=== PATIENT | male | born 1965 | race Caucasian/White ===

== ENCOUNTER 2022-02-02 08:31 | Day surgery (SDC) | payer OTHER, MEDICARE ==
[~2022-02-02 08:31] MED LIST: SODIUM CHLORIDE 0.9% 1000 ML 1,000 ML IV SCH
--- NOTE | 2022-02-02 10:17 | Anesthesia Consultation ---
Anesthesia Consult and Med Hx Date of service: 02/02/22 - Airway Anesthetic Teeth Evaluation: Good ROM Head & Neck: Adequate Mental/Hyoid Distance: Adequate Mallampati Class: Class I Intubation Access Assessment: Probably Good - Pulmonary Exam CTA: Yes - Cardiac Exam Cardiac Exam: RRR - Pre-Operative Health Status ASA Pre-Surgery Classification: ASA3 Proposed Anesthetic Plan: MAC - Pulmonary Hx Smoking: No Hx Asthma: No SOB: Yes (occasional with activity) Home Oxygen Therapy: No Hx Sleep Apnea: No - Cardiovascular System Hx Hypertension: Yes (EF 40-45% on echo from 02/2021) Hx Coronary Artery Disease: No (HLD) Hx Cardia Arrhythmia: Yes (Paroxysmal Afib - on eliquis last dose 01/29/22) Hx Pacemaker: Yes Hx Internal Defibrillator: Yes - Central Nervous System Hx Neuromuscular Disorder: No Hx Psychiatric Problems: No - Gastrointestinal Hx Gastroesophageal Reflux Disease: Yes - Endocrine Hx Renal Disease: No Hx Liver Disease: No (primary sclerosing cholangitis, pancreatic pseudocyst) Hx Non-Insulin Dependent Diabetes: No Hx Thyroid Disease: No - Hematic Hx Anemia: No Hx Sickle Cell Disease: No - Other Systems Hx Alcohol Use: Yes Hx Substance Use: No Hx Cancer: No Hx Obesity: No - Additional Comments Anesthesia Medical History Comments: No hx of anesthetic complications. Cardiac clearance reviewed and placed on chart.
--- NOTE | 2022-02-02 10:19 | Anesthesia Day of Surgery ---
Anesthesia Day of Surgery - Day of Surgery Patient Examined: Yes Patient H&P Reviewed: Yes Patient is NPO: Yes Cardiac Clearance: Yes
[2022-02-02] MEDS ORDERED: propofoL 200 MG/20 ML VIAL IV ONE ×3 (10:22→10:58)
[2022-02-02] MEDS ORDERED: LIDOCAINE MPF (2%) 20 MG/1 ML VIAL 5 ML ONE (10:22)
[2022-02-02] MEDS ORDERED: LIDOCAINE 2% UROJECT 10 ML JELLY ONE (10:44)
[2022-02-02] MEDS ORDERED: LIDOCAINE 2% UROJECT 10 ML JELLY TP ONE (11:01)
[2022-02-02] MEDS ORDERED: ePHEDrine SULFATE 50 MG/1 ML INJ ONE (11:21)
--- NOTE | 2022-02-02 11:21 | Procedure Note ---
Date of procedure: 02/02/22 Pre-op diagnosis: GERD/ Hematochezia/ H/O Primary sclerosing Cholangitis Post-op diagnosis: other (Mild to moderate Erosive Esophagitis/ R/o Eosinophilic Esophagitis/ Gastritis and Gastric Erosion/ R/O Celiac Disease/ R/O Iletis/ R/O Microscopic colitis/ Hematochezia secodary to Moderate Internal Hemorrhoids (s/p Banding x 4)) Procedure: EGD with Biopsy/ colonoscopy with biopsy/ Flexible Sigmoidoscopy with Banding x 4 Anesthesia: MAC Surgeon: RUSSELL PERES Estimated blood loss: minimal Pathology: list Specimen disposition: to lab Condition: stable Disposition: same day (Treat with PPI and Probiotic and prn Tramadol. Avoid aspirin, NSAID ad anticoagulants for 5 days; otherwise resume previous medication and F/U in 1 to 2 weeks ([phone]).)
[2022-02-02] MEDS ORDERED: traMADol 50 MG TAB ONE (11:31)
[2022-02-02] MEDS ORDERED: traMADol 50 MG TAB PO PRN (11:34)
--- NOTE | 2022-02-02 11:49 | Operative Report ---
DATE OF SURGERY: 02/02/2022 PROCEDURE PERFORMED: EGD with biopsy. INDICATIONS: The patient a 56-year-old gentleman with an underlying history of primary sclerosing cholangitis and history of atrial fibrillation and anticoagulant use. The patient has been having problems with GERD symptoms. EGD was done to assess for the severity of any upper GI pathology that may be present. DESCRIPTION OF PROCEDURE: Procedure was done after getting informed consent with MAC anesthesia. The instrument was passed through the hypopharynx into the esophagus, which showed mild to moderate erosive esophagitis. Photodocumentation and biopsy was done from the distal esophagus to assess for the severity of the erosive esophagitis as well as from the mid esophagus to assess for possible eosinophilic esophagitis. There was minimal bleeding associated with the biopsies. The stomach showed antral erosion and gastritis. The pylorus was patent. The duodenum in the first and second portion appeared normal. Biopsy was done from the second part of the duodenum to rule out for celiac disease. Additional biopsy was also done from the gastric antrum to assess for the severity of the gastric erosion from the gastric body as well as angular incisura to rule out for H. pylori and atrophic gastritis. Again, there was minimal bleeding associated with the biopsy and from the biopsy sites. ASSESSMENT: GERD symptoms, mild to moderate erosive esophagitis, rule out eosinophilic esophagitis, gastric erosion, gastritis. No peptic ulcer disease noted. Rule out celiac disease. PLAN: To have the patient avoid aspirin and aspirin-related products and anticoagulants for the next few days. Treat the patient with PPI as well as probiotics. Colonoscopy is to be done to assess for the patient's hematochezia. Procedure was done in the GI lab with assistance of the GI lab team, which included the GI nurse, the nuclear engineering technician and with assistance of anesthesia. TID: [id number] RECEIPT: [id number] PRAVIN/SID
--- NOTE | 2022-02-02 12:21 | Operative Report ---
DATE OF SURGERY: 02/02/2022 PROCEDURE: Flexible sigmoidoscopy with banding x 4 for treatment of his moderate internal hemorrhoid, which was the possible cause of his hematochezia that was noted during colonoscopy. DESCRIPTION OF PROCEDURE: The EGD scope with the banding apparatus was then introduced through the rectum and retroflexed. Four of the largest hemorrhoids were then suctioned into the suction channel and bands were deployed. A total of 6 bands were deployed, 2 of which did not take and 4 bands were applied to the 4 largest internal hemorrhoids. At the end of the procedure, lidocaine gel was injected into the rectal vault and smeared hemorrhoids. There was minimal bleeding and no complications associated with the procedure. ASSESSMENT: Hematochezia secondary to moderate internal hemorrhoids, status post banding x 4. PLAN: To treat the patient with tramadol as needed. Avoid aspirin and aspirin-related products and anticoagulants. Encouraged the patient to take Sitz bath and hemorrhoidal medication and follow up in the office in 1-2 weeks' time. Procedure was done in the GI lab with assistance of the GI lab team, which included the GI nurse, the atmospheric technician and with assistance of anesthesia. TID: [id number] RECEIPT: [id number] YVONNE
--- NOTE | 2022-02-02 12:28 | Operative Report ---
DATE OF SURGERY: 02/02/2022 PROCEDURE PERFORMED: Colonoscopy with biopsy. INDICATIONS: This is a 56-year-old gentleman with an underlying history of primary sclerosing cholangitis, history of atrial fibrillation. EGD was done prior to the colonoscopy because of his GERD symptoms, which showed [id number] erosive esophagitis as well as gastritis and gastric erosion, but no peptic ulcer disease. Colonoscopy was done to assess for his source of hematochezia. Initial rectal examination was unremarkable. DESCRIPTION OF PROCEDURE: Instrument was passed through the rectum onto the cecum, which was identified with ileocecal valve and appendiceal orifice. Visualization was fair to good because of his underlying history of primary sclerosing cholangitis. Biopsy was done from the terminal ileum to rule out for ileitis and random biopsies were done from throughout the colon to rule out for microscopic colitis. There was no endoscopic evidence of inflammatory bowel disease noted and the rectum showed moderate internal hemorrhoids as a cause of the patient's bleeding. The patient is to have a flexible sigmoidoscopy with banding done for treatment of his hematochezia. ASSESSMENT: Hematochezia secondary to moderate internal hemorrhoids, rule out microscopic colitis, rule out ileitis. History of primary sclerosing cholangitis. PLAN: To do a flexible sigmoidoscopy with banding and have the patient avoid aspirin and aspirin-related products for the next few days, otherwise, resume previous medication. Also, avoid anticoagulants for the next 5 days. The patient is to be treated with PPI and a flexible sigmoidoscopy with banding is to be done for treatment of his hematochezia secondary to moderate internal hemorrhoids. Procedure was done in the GI lab with assistance of the GI lab team, which included the GI nurse, the carpet cleaning technician and with assistance of anesthesia. TID: [id number] RECEIPT: [id number] PRAVIN/ALEJANDRO
--- NOTE | 2022-02-02 12:57 | Post Anesthesia Evaluation ---
- Post Anesthesia Evaluation Patient Participated: Yes Airway Patent: Yes Stable Respiratory Function: Yes Nausea/Vomiting: No Temp > 96.8F: Yes Pain Manageable: Yes Adequeate Hydration: Yes Anesthesia Complications: No
[2022-02-02 16:32] VITALS: BP 115/68
== END 2022-02-02 11:45 | disposition home or self-care (01) ==
LOC: GIO 08:31
DX: K62.5 Hemorrhage of anus and rectum (principal); K30 Functional dyspepsia; K64.8 Other hemorrhoids; K21.00 Gastro-esophageal reflux disease with esophagitis, without bleeding; K31.89 Other diseases of stomach and duodenum; K63.89 Other specified diseases of intestine; K29.70 Gastritis, unspecified, without bleeding; I42.9 Cardiomyopathy, unspecified; I48.91 Unspecified atrial fibrillation; I10 Essential (primary) hypertension; Z88.8 Allergy status to other drugs, medicaments and biological substances; Z79.899 Other long term (current) drug therapy; Z90.49 Acquired absence of other specified parts of digestive tract; Z72.89 Other problems related to lifestyle; Z98.890 Other specified postprocedural states
CPT/HCPCS: 43239; 45380; 46221; 88305; 88342; J2704; J3490; J7030; J7120; Q0162